=== PATIENT | female | born 1995 | race African-American/Black ===

== ENCOUNTER 2017-11-26 18:18 | Emergency (ER) | payer OTHER ==
[~2017-11-26] VITALS: Ht 170.2 cm; Wt 73.9 kg
[~2017-11-26 18:18] MED LIST: APAP500 PO; DERMOPLAST SPRA56 ML; IBUPROFEN 600600 M1 PO; LANOLIN56 GM; LORTAB 5 MG/5001 TA1 PO; PRENATAL; SENOKOT-S1 TA1 PO; TUCKS MEDICATE1 EAC1
[2017-11-26] MEDS ORDERED: PROTONIX40 M1 PO (20:32)
== END 2017-11-26 21:00 | disposition home or self-care (01) ==
LOC: ER 18:18
DX: K21.9 Gastro-esophageal reflux disease without esophagitis (principal)